=== PATIENT | male | born 2005 | race Hispanic/Latino ===

== ENCOUNTER 2024-04-02 18:15 | Emergency (ER) | payer SELFPAY ==
[2024-04-02] MEDS ORDERED: Ketorolac Tromethamine 30 MG (1 mL) VIAL ONE (19:30)
== END 2024-04-02 20:33 | disposition home or self-care (01) ==
LOC: ERS 18:15
DX: S90.31XA Contusion of right foot, initial encounter (principal); S93.401A Sprain of unspecified ligament of right ankle, initial encounter; W22.8XXA Striking against or struck by other objects, initial encounter; Y93.89 Activity, other specified
CPT/HCPCS: 96372; 99283; J1885

== ENCOUNTER 2024-06-10 19:44 | Emergency (ER) | payer SELFPAY | END 2024-06-10 21:21 | disposition home or self-care (01) | LOC: ERS 19:44 | DX: A63.0 Anogenital (venereal) warts (principal) | CPT/HCPCS: 99282 ==